=== PATIENT | female | born 1955 | race Caucasian/White ===

== ENCOUNTER 2023-06-29 22:12 | Emergency (ER) | payer OTHER, SELFPAY ==
[2023-06-29 22:14] VITALS: BP 134/76
[2023-06-29 22:41] LABS: % Basophils 0.6 % (0-2); % Eosinophils 0.7 % (0-6); % Immature Granulocytes 0.6 % (0-0.5); % Lymphocytes 17.1 % (20.5-51.1); Absolute Basophils 0.1 10^3/uL (0-0.2); Absolute Eosinophils 0.1 10^3/uL (0-0.7); Absolute Immature Granulocytes 0.1 10^3/uL (0-0.05); Absolute Lymphocytes 1.9 10^3/uL (1.2-3.4); Absolute Monocytes 0.7 10^3/uL (0.1-0.6); Absolute Neutrophils 8.3 10^3/uL (1.4-6.5); Hematocrit 41.4 % (37.0-47.0); Hemoglobin 14.2 g/dL (12.0-16.0); Mean Corp Hgb Conc. 34.3 g/dL (33.0-37.0); Mean Corpuscular Hgb 28.9 pg (27.0-31.0); Mean Corpuscular Volume 84.1 fL (81.0-99.0); Mean Platelet Volume 9.2 fL (7.4-10.4); Nucleated Red Blood Cells % 0 %; Platelet Count 257 10^3/uL (130-400); Red Blood Cell Count 4.92 10^6/uL (4.20-5.40); Red Cell Dist. Width 13.1 % (11.5-14.5); White Blood Cell Count 11.1 10^3/uL (4.8-10.8)
[2023-06-29 22:54] LABS: ALT (SGPT) 33 U/L (0-35); AST (SGOT) 37 U/L (14-36); Albumin 4.5 g/dl (3.5-5.0); Alkaline Phosphatase 130 U/L (38-126); Blood Urea Nitrogen 15 mg/dl (7-17); Calcium 9.1 mg/dl (8.4-10.2); Carbon Dioxide 23 mmol/L (22-30); Chloride 103 mmol/L (98-107); Glucose 120 mg/dl (70-99); Potassium 3.8 mmol/L (3.5-5.1); Sodium 134 mmol/L (135-145); Total Bilirubin 0.5 mg/dl (0.2-1.3); eGFR > 60.00
[2023-06-29 23:07] LABS: Troponin I < 0.012 ng/ml
[2023-06-30 01:00] VITALS: BMI 28.8
[2023-06-30 01:05] VITALS: BP 150/87
--- NOTE | 2023-06-30 01:17 | ED.GENMED ---
History of Present Illness
<JONATHAN Arias - Last Filed: 06/30/23 01:30>
General
Chief Complaint: Fainting/Passed Out
Source: patient
Exam Limitations: none
Time Seen by Provider: 06/30/23 01:00
Nursing documentation reviewed up to this point in time: agreed with
Travel History
Have you had any contact with someone who has COVID-19?: No
Do you have any symptoms of coronavirus? Fever > 100 degrees, chills, cough, shortness of breath, sore throat, loss of taste or smell, muscle aches, or headache?: No
History of Present Illness
History of Present Illness:
patient is a 68 y/o female presenting for syncopal event. patient states she was at lunch with friends when she started to feel 'warm and woozy' she was then told by her friends that she became unresponsive and began to fall when someone caught her.
Patient denies any fall or headstrike. patient states this has never happened previously. patient admits that this was followed by three bouts of vomitt that were nonbilious. patient denies palpitations, MOLINA, fever, chills, CP, SOB, abdominal pain.
patient denies diet changes, alcohol or smoking.
Past History
<JONATHAN Arias - Last Filed: 06/30/23 01:30>
Past History
ED Past Medical History: Cancer (hx of breast cancer )
ED Past Surgical History: Other (mastectomy )
Social History
Tobacco: Non-smoker
Alcohol: None
Review of Systems
<JONATHAN Arias - Last Filed: 06/30/23 01:30>
Review of Systems
All Other Systems: Not applicable
Constitutional: Reports no symptoms
EENT: Reports no symptoms
Respiratory: Reports no symptoms
Cardiac: Reports syncope
ABD/GI: Reports nausea and vomiting
: Reports no symptoms
Musculoskeletal: Reports no symptoms
Skin: Reports other (warmth)
Neurological: Reports dizzy
Endocrine: Reports no symptoms
Hematologic/Lymphatic: Reports no symptoms
Psychiatric: Reports no symptoms
Phy Exam
<ST HugoGA - Last Filed: 06/30/23 01:30>
General Physical Exam
General Presentation: well appearing and no apparent distress
General Skin: warm and dry
General Habitus: normal
General Mental: alert
General Hydration: appears well hydrated
ENT Exam
ENT Exam: EOMI, pharynx normal, neck supple and normocephalic
Eye Exam
Eye Exam: PERRL, cornea clear and conjunctiva normal
Cardiovascular Exam
Cardiovascular Exam: regular rate/rhythm, no edema, no murmur and normal peripheral pulses
Pulmonary Exam
Pulmonary Exam: lungs clear, no respiratory distress, no rales, no crackles, no rhonchi, no stridor, no wheezing and no cough
Gastrointestinal Exam
Gastrointestinal Exam: normal bowel sounds, non tender, soft, no organomegaly, no pulsatile mass and non distended
Neurological Exam
Neurological Exam: alert, oriented x3, no motor deficits and speech normal
Musculoskeletal Exam
Musculoskeletal Exam: full ROM and no edema
Skin Exam
Skin Exam: normal color, warm/dry, no rash and no petechia
Psychiatric Exam
Psychiatric Exam: normal mood/affect
Course
<Leona Bower [facility] - Last Filed: 06/30/23 01:30>
Orders/Labs/Results
Orders:
Orders
06/29/23 22:19
Electrocardiogram (*1) Urgent
Reason for Study: Syncope
EKG- Treatment ONCE
06/29/23 22:34
CMP [Comprehensive Metabolic Panel] Urgent
Complete Blood Count/With Diff Urgent
Troponin I Urgent
06/30/23 02:10
Ambulate Patient-Treatment ONCE
Orthostatic VS- Treatment ONCE
Abnormal Lab Results
06/29/23
22:34
WBC 11.1 H 10^3/uL
(4.8-10.8)
Abs Immat Gran (auto) 0.1 H 10^3/uL
(0-0.05)
Absolute Neuts (auto) 8.3 H 10^3/uL
(1.4-6.5)
Absolute Monos (auto) 0.7 H 10^3/uL
(0.1-0.6)
Immature Gran % 0.6 H %
(0-0.5)
Lymphocytes % 17.1 L %
(20.5-51.1)
Sodium 134 L mmol/L
(135-145)
Glucose 120 H mg/dl
(70-99)
AST 37 H U/L
(14-36)
Alkaline Phosphatase 130 H U/L
(38-126)
06/29/23 22:34
06/29/23 22:34
Vital Signs
Initial and Last Documented VS:
Initial Vital Signs
Temp Pulse Resp BP Pulse Ox
97.7 F 84 18 134/76 98
06/29/23 22:14 06/29/23 22:14 06/29/23 22:14 06/29/23 22:14 06/29/23 22:14
Last Documented Vital Signs
Temp Pulse Resp BP Pulse Ox
97.7 F 82 14 150/87 98
06/29/23 22:14 06/30/23 01:05 06/30/23 01:05 06/30/23 01:05 06/30/23 01:05
<Carroll Acevedo, DO - Last Filed: 06/30/23 02:31>
Orders/Labs/Results
Orders:
Orders
06/29/23 22:19
Electrocardiogram (*1) Urgent
Reason for Study: Syncope
EKG- Treatment ONCE
06/29/23 22:34
CMP [Comprehensive Metabolic Panel] Urgent
Complete Blood Count/With Diff Urgent
Troponin I Urgent
06/30/23 02:10
Ambulate Patient-Treatment ONCE
Orthostatic VS- Treatment ONCE
Abnormal Lab Results
06/29/23
22:34
WBC 11.1 H 10^3/uL
(4.8-10.8)
Abs Immat Gran (auto) 0.1 H 10^3/uL
(0-0.05)
Absolute Neuts (auto) 8.3 H 10^3/uL
(1.4-6.5)
Absolute Monos (auto) 0.7 H 10^3/uL
(0.1-0.6)
Immature Gran % 0.6 H %
(0-0.5)
Lymphocytes % 17.1 L %
(20.5-51.1)
Sodium 134 L mmol/L
(135-145)
Glucose 120 H mg/dl
(70-99)
AST 37 H U/L
(14-36)
Alkaline Phosphatase 130 H U/L
(38-126)
06/29/23 22:34
06/29/23 22:34
Vital Signs
Initial and Last Documented VS:
Initial Vital Signs
Temp Pulse Resp BP Pulse Ox
97.7 F 84 18 134/76 98
06/29/23 22:14 06/29/23 22:14 06/29/23 22:14 06/29/23 22:14 06/29/23 22:14
Last Documented Vital Signs
Temp Pulse Resp BP Pulse Ox
97.7 F 82 14 150/87 98
06/29/23 22:14 06/30/23 01:05 06/30/23 01:05 06/30/23 01:05 06/30/23 01:05
<JONATHAN Arias - Last Filed: 06/30/23 01:30>
MDM/Problems Addressed
Differential Diagnosis Includes:
vasovagal syncope
dysrhythmia
HTN
MDM/Problems Addressed:
syncopal event
<JONATHAN Arias - Last Filed: 06/30/23 01:30>
*Critical Care Note
Total Time (30-74mins, 75-104mins- exclusive of procedures): Not Applicable
ED Attending Note
<JONATHAN Arias - Last Filed: 06/30/23 01:30>
-
Portions of this chart may have been created with voice recognition software.� Occasional wrong word or��sound alike� substitutions may have occurred due to the inherent limitations of voice recognition software.
<Carroll Acevedo DO - Last Filed: 06/30/23 02:31>
ED Attending Note
Patient seen and examined by attending physician: Yes
I performed the substantive portion of visit, reviewed & personally made and approve the management plan that is documented in note by myself or JOSE.: Yes
ED Attending Note:
Pleasant 68-year-old female who presents with a syncopal event. She was eating with some friends and felt some abdominal pain. She then started to feel warm and briefly passed out. One of her friends caught her when she started to fall. She was
placed in her chair. Patient denies any head injury or fall. Patient states that when she came to she felt back to normal. She went home and had several episodes of vomiting and then felt fine. She had a friend call her who was concerned for her
safety so she came into the emergency department for evaluation. Upon arrival she stated that all symptoms had resolved. She never had chest pain or shortness of breath. Denied headache or dizziness. Patient wishes to be discharged. Patient was
seen in conjunction with the PA student. I have reviewed and agree with the history and treatment plan presented. On my independent physical exam, patient is awake, alert, and oriented x3
Discharge Plan
Departure
Patient Disposition: Home (Routine Discharge)
Date of Disposition: 06/30/23
Time of Disposition: 02:29
Patient with high blood pressure during this ER visit?: Yes
Condition: Good
Discharge Problem:
Vasovagal near syncope
Instructions: Syncope (Fainting) (DC), BLOOD PRESSURE
Prescriptions:
No Action
atorvastatin
1 tab PO HS
Referrals:
Sharon Fontenot DO [Family Provider] -
Activity Restrictions/Additional Instructions:
It was a pleasure meeting you and taking part in your care. We hope for your continued healing and wellness.
Please read discharge instructions in their entirety. However, they are for general education and may not describe your exact diagnosis at discharge. Information on your ER visit and medical conditions were discussed with you along with appropriate
follow up information...
If indicated, please take your medications as instructed and indicated on discharge paperwork.
Please schedule a follow up appointment as directed. Call to schedule an appointment
Please return to the emergency department with ANY change in, persisting, or worsening of symptoms. If any of your symptoms do not improve, or persist, or become more severe within 6-12 hours, please return to the emergency department for further
care.
Please return to the emergency department if you develop a headache, neck pain/stiffness, fever greater than 100.4F, chest pain, shortness of breath, persistent nausea, vomiting, slurred speech, difficulty walking, numbness/tingling, weakness, signs
of infection or any other symptoms that are worrisome to you.
If you have any questions or concerns please do not hesitate to call the Hospital at or E-mail me directly at [email or web address]
Interventions
Interventions:
*Risk Screen - Suicide Last Done: 06/29/23 22:14
*General Assessment Last Done: 06/29/23 22:14
*Neglect/Abuse Screening Last Done: 06/29/23 22:14
ED- Fall Risk Assessment Last Done: 06/29/23 22:14
*ED COVID-19 Vaccine History Last Done: 06/30/23 00:59
ED- Cardiac Assessment Last Done: 06/30/23 01:08
ED- Neurological Assessment Last Done: 06/30/23 01:07
[2023-06-30 02:20] VITALS: BP 133/90; BP 138/73; BP 151/74; PULSE 103; PULSE 90; PULSE 92
[2023-06-30 02:44] VITALS: BP 133/90
== END 2023-06-30 02:46 | disposition home or self-care (01) ==
LOC: EMR 22:12
PROVIDERS: EMERGENCY PHYSICIAN Student in an Organized Health Care Education/Training Program; FAMILY PHYSICIAN Family Medicine
DX: R55 Syncope and collapse (principal); R10.9 Unspecified abdominal pain; R11.10 Vomiting, unspecified; I10 Essential (primary) hypertension
CPT/HCPCS: 99284; 80053; 84484; 85025; 93005